=== PATIENT | female | born 1965 | race Two or more races ===

== ENCOUNTER 2021-04-16 22:39 | Inpatient (IN) | payer MEDICAID ==
[~2021-04-16] VITALS: Ht 154.9 cm; Wt 66.8 kg
--- NOTE | 2021-04-16 22:40 | NUR ---
pt bibra c/o gen weakness, n/v/d xtoday. pt aaox4 breathing evenly and unlabored. Pt skin warm, dry, and intact. Pt attached to monitor and pox. pt given blanket and call light within reach
[2021-04-16] MEDS ORDERED: ONDANSETRON HCL/PF 4 MG/2 ML VIAL IV ONE (23:30)
[2021-04-16] MEDS ORDERED: IV NS 0.9% 1,000 ML BAG IV ONE (23:30)
[2021-04-16] MEDS ORDERED: IV NS 0.9% 500 ML BAG IV ONE (23:30)
[2021-04-16] MEDS ORDERED: ONDANSETRON HCL/PF 4 MG/2 ML VIAL ONE (23:31)
[2021-04-16 23:33] LABS: BASOPHILS % (AUTO) 0.3 % (0.0-2.0); HEMATOCRIT 46 % (33-45); HEMOGLOBIN 14.9 g/dL (11.5-14.8); LYMPHOCYTES # (AUTO) 1.5 K/uL (0.8-4.8); LYMPHOCYTES % (AUTO) 11.4 % (20.0-44.0); MEAN CORPUSCULAR HGB CONC 33 g/dl (31.0-36.0); MEAN CORPUSCULAR VOLUME 85 fL (82-100); MONOCYTES # (AUTO) 0.4 K/uL (0.1-1.30); MONOCYTES % (AUTO) 2.8 % (2.0-12.0); NEUTROPHILS # (AUTO) 11.5 K/uL (1.8-8.9); NEUTROPHILS % (AUTO) 85.5 % (43.0-81.0); PLATELET COUNT (AUTO) 169 K/uL (150-450); RED BLOOD CELL COUNT(AUTO) 5.39 MIL/uL (4.0-5.2); WHITE BLOOD COUNT (AUTO) 13.4 K/uL (4.3-11.0)
[2021-04-17] VITALS (36 sets, daily range): BP systolic 90–210; BP diastolic 20–126
[2021-04-17 00:01] LABS: ALANINE AMINOTRANSFERASE 20 U/L (12-78); ALBUMIN 4.1 g/dL (3.4-5.0); ALKALINE PHOSPHATASE 180 U/L (46-116); ASPARTATE AMINOTRANSFERASE 16 U/L (15-37); BILIRUBIN,DIRECT 0.2 mg/dL (0.0-0.2); BILIRUBIN,TOTAL 0.9 mg/dL (0.2-1.0); CALCIUM, SERUM 9.5 mg/dL (8.5-10.1); CARBON DIOXIDE 22 mmol/L (21-32); CHLORIDE 98 mmol/L (98-107); CREATININE 0.7 mg/dL (0.6-1.3); POTASSIUM 3.4 mmol/L (3.5-5.1); SODIUM SERUM 136 mmol/L (136-145); TOTAL PROTEIN, SERUM 8.4 g/dL (6.4-8.2); UREA NITROGEN, BLOOD 12 mg/dL (7-18)
--- NOTE | 2021-04-17 00:02 | NUR ---
blood glucose 359, per lab
[2021-04-17 00:03] LABS: GLUCOSE 359 mg/dL (74-106)
[2021-04-17] MEDS ORDERED: INSULIN REGULAR, HUMAN 100 UNIT/ML 10 ML VIAL IV ONE (01:00)
--- NOTE | 2021-04-17 01:00 | NUR ---
urine sent to lab
[2021-04-17] MEDS ORDERED: INSULIN REGULAR, HUMAN 100 UNIT/ML 10 ML VIAL ONE (01:07)
[2021-04-17] MEDS ORDERED: ONDANSETRON HCL/PF 4 MG/2 ML VIAL ONE (01:07)
[2021-04-17] MEDS ORDERED: ONDANSETRON HCL/PF 4 MG/2 ML VIAL IV ONE (01:30)
--- NOTE | 2021-04-17 02:03 | NUR ---
elio, son [phone]
--- NOTE | 2021-04-17 02:05 | NUR ---
called lab to f/u 10 more minutes for urine
--- NOTE | 2021-04-17 02:17 | NUR ---
bg 299
[2021-04-17 02:50] LABS: ABG BASE EXCESS -4.5 mmol/L; ABG OXYGEN SATURATION 96.7 % (92.0-98.5); ABG PCO2 23.7 mmHg (35.0-45.0); ABG PH 7.471 (7.350-7.450); ABG PO2 84.7 mmHg (75.0-100.0); AaDO2 36.7 mmHg; COHb 0.6 % (0.5-1.5); MetHb 0.5 % (0.0-1.5); O2Hb 95.6 % (94.0-97.0); SITE, ABG Right Brachial; VENT MODE, BG ROOM AIR
[2021-04-17 03:00] LABS: BILIRUBIN,URINE NEGATIVE (NEGATIVE); COLOR,URINE YELLOW (YELLOW); LEUKOCYTE ESTERASE ,URINE NEGATIVE (NEGATIVE); NITRITE, URINE NEGATIVE (NEGATIVE); PROTEIN,URINE NEGATIVE (NEGATIVE); UGLUCOSE >=1000 mg/dL (NEGATIVE); UROBILINOGEN,URINE 0.2 EU/dL (0.2)
--- NOTE | 2021-04-17 03:04 | NUR ---
CALLED NURSING SUP FOR TELE BED
[2021-04-17 03:19] LABS: BACTERIA,URINE None seen /HPF (None Seen); MUCUS,URINE Rare /LPF (None Seen); RBC,URINE 0-2 /HPF (0-2); SQUAMOUS EPITHELIAL CELL,UR Rare /HPF (None Seen); WBC,URINE 0-2 /HPF (0-3)
[2021-04-17] MEDS ORDERED: hydrALAZINE HCL IV 20 MG VIAL ONE ×2 (03:26→05:01)
[2021-04-17] MEDS ORDERED: METOCLOPRAMIDE HCL 10 MG/2 ML VIAL ONE (03:26)
--- NOTE | 2021-04-17 03:29 | NUR ---
Neon Pumper Gema Angel verbal order 10g hydralazine and 10 mg Reglan
--- NOTE | 2021-04-17 04:18 | NUR ---
attempted to give report. Placed on hold. will call again
[2021-04-17] MEDS ORDERED: DEXTROSE 50%-WATER 50 ML DISP.SYRIN IV PRN ×2 (04:30→22:00)
[2021-04-17] MEDS ORDERED: *INSULIN ASPART NOVOLOG 100 UNIT/ML CARTRIDGE SQ PRN (04:30)
[2021-04-17] MEDS ORDERED: ACETAMINOPHEN 325 MG TABLET PO PRN (04:30)
[2021-04-17] MEDS ORDERED: INSULIN ASPART/LISPRO 100 UNIT/ML CARTRIDGE SQ PRN (04:30)
[2021-04-17] MEDS ORDERED: ZOLPIDEM TARTRATE 5 MG TABLET PO PRN (04:30)
[2021-04-17] MEDS ORDERED: Z GUARD REMEDY 2 OZ OINT TP PRN (04:30)
[2021-04-17] MEDS ORDERED: IV NS 0.9% 1,000 ML IV PRN ×2 (04:30→05:16)
[2021-04-17] MEDS ORDERED: BLOOD SUGAR DIAGNOSTIC 1 EACH STRIP IN SCH (04:30)
[2021-04-17] MEDS ORDERED: MAGNESIUM HYDROXIDE 30 ML UDC PO PRN (04:30)
[2021-04-17] MEDS ORDERED: MAG HYDROX/AL HYDROX/SIMETH 30 ML UDC PO PRN (04:30)
--- NOTE | 2021-04-17 04:42 | NUR ---
gave report to SONAM Coronado for kyle
[2021-04-17 04:52] LABS: CALCIUM, SERUM 9.2 mg/dL (8.5-10.1); CREATININE 0.7 mg/dL (0.6-1.3); POTASSIUM 3.2 mmol/L (3.5-5.1)
[2021-04-17] MEDS ORDERED: METOCLOPRAMIDE HCL 10 MG/2 ML VIAL IV PRN (05:00)
[2021-04-17] MEDS ORDERED: hydrALAZINE HCL IV 20 MG VIAL IV PRN ×2 (05:00→05:30)
--- NOTE | 2021-04-17 05:00 | NUR ---
Drop Wire Stringer priyanka Angel verbal order 10mg hydralzaine iv
[2021-04-17] MEDS: BLOOD SUGAR DIAGNOSTIC 1 EACH STRIP IN SCH ×16 (05:26→23:52)
[2021-04-17] MEDS ORDERED: SODIUM BICARBONATE SYR 50 MEQ/50 ML DISP.SYRIN IV ONE (05:30)
[2021-04-17] MEDS ORDERED: INSULIN REGULAR, HUMAN 100 UNIT in IV NS 0.9% 99 ML IV PRN (05:30)
--- NOTE | 2021-04-17 05:30 | NUR ---
PER NEVIN, HAND BOX FOLDER, PT WILL NEED ICU BED, PT WILL BE STARTED ON INSULIN DRIP. HOUSE SUP MADE AWARE. NO NURSE/BED AVAILABLE AT THIS TIME
--- NOTE | 2021-04-17 05:45 | NUR ---
CALLED NURSING SUP FOR MIDLINE
--- NOTE | 2021-04-17 05:50 | NUR ---
Per Gema Melissa, insulin drip started with algorithm 2. insulin 100 unit in 0.9% NS 100ml rate 5units/hr
--- NOTE | 2021-04-17 06:45 | NUR ---
rt at bedside for ABG
--- NOTE | 2021-04-17 06:55 | NUR ---
bg 331
--- NOTE | 2021-04-17 07:05 | NUR ---
gave report to SONAM Desir for kyle
[2021-04-17 07:15] LABS: ABG BASE EXCESS -4.2 mmol/L; ABG PCO2 17.5 mmHg (35.0-45.0); ABG PH 7.552 (7.350-7.450); ABG PO2 131.1 mmHg (75.0-100.0); COHb 1.7 % (0.5-1.5); MetHb 0.3 % (0.0-1.5); SITE, ABG Left Femoral; VENT MODE, BG room air
--- NOTE | 2021-04-17 07:50 | NUR ---
GOT ICU BED 256
[2021-04-17] MEDS ORDERED: INSU100I19 SQ (07:59)
[2021-04-17] MEDS ORDERED: INSU100V SQ (07:59)
[2021-04-17] MEDS ORDERED: LISI10TA29 PO (07:59)
[2021-04-17] MEDS ORDERED: GABA600T12 PO (07:59)
[2021-04-17] MEDS ORDERED: AMIT25TA9 PO (07:59)
--- NOTE | 2021-04-17 08:03 | NUR ---
report given to nurse Restrepo from ICU
--- NOTE | 2021-04-17 08:37 | NUR ---
pt transfered to ICU WITH ACLS PROTOCOLS IN PLACE
--- NOTE | 2021-04-17 09:00 | NUR ---
CORRECTIONAL SUPPLY SUPERVISOR NOTE RECEIVED PATIENT FROM ER.WITH DIAGNOSIS OF DKA AND HYPERTENSIVE URGENCY.PATIENTAXOX2 WITH ANXIETY.ELEVATED BP .RESTLESS.SIEBEL CONSULTANT DEWAYNE MADE AWARE.PATIENT HAS ONLY 1 IV LINE.UNABLE TO CONNECT ANY OTHER FLUID.HARD STICK.GUN SEALING MACHINE OPERATOR MADE AWARE FOR MIDLINE PLACEMENT.INSERTED PA CATH,PATIENT FEEL DIZZY WHILE GETTING UP WITH ANXIETY.HYPERVENTILATED.REFUSED TO USE BEDPAN.AGREED WITH PA CATH PLACEMENT.BED IS LOW AND IN ARMAND DPOSITION.CALL LIGHT IN REACH.BED ALARM TOSHIA SRX3.WILL CONTINUE TO MONITOR.
[2021-04-17] MEDS: ONDANSETRON HCL/PF 4 MG/2 ML VIAL IVP PRN (09:02)
[2021-04-17] MEDS: POTASSIUM CL. PREMIX PERIPHER. 50 ML IV SCH ×10 (09:07→23:44)
[2021-04-17] MEDS: hydrALAZINE HCL IV 20 MG VIAL IV PRN ×2 (09:38→23:19)
[2021-04-17] MEDS: PANTOPRAZOLE 40 MG VIAL IV SCH ×2 (09:56→22:29)
[2021-04-17 10:05] LABS: BASOPHILS # (AUTO) 0.1 K/uL (0.0-0.2); BASOPHILS % (AUTO) 0.6 % (0.0-2.0); HEMATOCRIT 44 % (33-45); HEMOGLOBIN 14.9 g/dL (11.5-14.8); LYMPHOCYTES # (AUTO) 1.1 K/uL (0.8-4.8); LYMPHOCYTES % (AUTO) 5.8 % (20.0-44.0); MEAN CORPUSCULAR HGB CONC 34 g/dl (31.0-36.0); MEAN CORPUSCULAR VOLUME 82 fL (82-100); MONOCYTES # (AUTO) 1.4 K/uL (0.1-1.30); MONOCYTES % (AUTO) 7.7 % (2.0-12.0); NEUTROPHILS # (AUTO) 16.2 K/uL (1.8-8.9); NEUTROPHILS % (AUTO) 85.9 % (43.0-81.0); PLATELET COUNT (AUTO) 473 K/uL (150-450); RED BLOOD CELL COUNT(AUTO) 5.44 MIL/uL (4.0-5.2); WHITE BLOOD COUNT (AUTO) 18.9 K/uL (4.3-11.0)
--- NOTE | 2021-04-17 10:10 | NUR ---
VOLUNTEER MANAGER NOTE SEEN BY FARA BUCHANAN.UPDATED ABOUT PATIENT CONDITION WITH ABNORMAL LABS WITH ABG,MADE AWARE THAT UNABLE TO GIVE IV FLUID BECAUSE OF IV LINE ONLY ONE AWAITING MIDLINE INSERTION .PATIENT C/O PAIN WHILE GIVING FLUID.WILL CONTINUE TO MONITOR.
[2021-04-17] MEDS: MORPHINE SULFATE INJ 2 MG/ML DISP.SYRIN IV PRN ×3 (10:11→22:30)
[2021-04-17 10:27] LABS: CALCIUM, SERUM 9.7 mg/dL (8.5-10.1); CARBON DIOXIDE 20 mmol/L (21-32); CHLORIDE 98 mmol/L (98-107); CREATININE 0.8 mg/dL (0.6-1.3); GLUCOSE 309 mg/dL (74-106); SODIUM SERUM 138 mmol/L (136-145); UREA NITROGEN, BLOOD 9 mg/dL (7-18)
[2021-04-17 10:33] LABS: LIPASE 52 U/L (73-393); MAGNESIUM 1.5 mg/dL (1.8-2.4); PHOSPHORUS 1.4 mg/dL (2.5-4.9); POTASSIUM 2.4 mmol/L (3.5-5.1)
[2021-04-17 10:35] LABS: CHOLESTEROL 235 mg/dL (<200); HDL CHOLESTEROL 58 mg/dL (40-60); LDL 154 mg/dL (0-99); TRIGLYCERIDES 110 mg/dL (30-150)
[2021-04-17] MEDS ORDERED: MORPHINE SULFATE INJ 2 MG/ML DISP.SYRIN IV STA (10:58)
[2021-04-17] MEDS ORDERED: IV D5W 1,000 ML IV PRN (12:30)
[2021-04-17 13:00] LABS: ABG BASE EXCESS -0.9 mmol/L; ABG OXYGEN SATURATION 98.7 % (92.0-98.5); ABG PCO2 13.4 mmHg (35.0-45.0); ABG PH 7.677 (7.350-7.450); AaDO2 29.7 mmHg; COHb 0.7 % (0.5-1.5); MetHb 0.2 % (0.0-1.5); O2Hb 97.8 % (94.0-97.0); SITE, ABG Right Radial; VENT MODE, BG ROOM AIR
[2021-04-17] MEDS: Potassium Chloride 40 MEQ in IV NS 0.9% 1,000 ML IV SCH ×2 (13:32→19:48)
[2021-04-17] MEDS ORDERED: LORAZEPAM INJ 2 MG/ML VIAL IV ONE (15:00)
[2021-04-17 15:03] LABS: CALCIUM, SERUM 9.5 mg/dL (8.5-10.1); CREATININE 0.7 mg/dL (0.6-1.3)
[2021-04-17 15:05] LABS: POTASSIUM 2.7 mmol/L (3.5-5.1)
[2021-04-17] MEDS ORDERED: Sodium Phosphate 15 MMOL in IV NS 0.9% 245 ML IV SCH (15:30)
--- NOTE | 2021-04-17 19:30 | NUR ---
SYSTEMS INTEGRATION MANAGER OPENING NOTES: RECEIVED PT A/OX4 IN BED RESTING PATIENT IN NO S/SX OF ACUTE DISTRESS AT THIS TIME. NO SOB NOTED. PATIENT'S BREATHING IS EVEN AND UNLABORED. PATIENT IS ON ROOM AIR; TOLERATING WELL WITH 02 SAT OF 100% AT THE TIME OF RECEIVED. PATIENT ON TELE MONITORING READING SINUS RHYTHM HR IS @90s AT THE TIME OF RECEIVED. PATIENT ON NPO. NOTED IV SITE ON L FA #20 , L HAND #20 AND R UAM MDILINE #18 ; ALL PATENT, INTACT AND FLUSHING WELL; NO S/S OF INFECTION OR INFILTRATION. WITH IV FLUID RUNNING ORDERED. PT HAS A RUNNING INSULIN DRIP; RECIEVED @2UNITS/HR PER PROTOCOL. PA CATH IN PLACE, MODERATE URINE OUTPUT NOTED. SAFETY MEASURES HAVE BEEN PROVIDED AND IMPLEMENTED. PATIENT BED ALARM IS ON. HEAD OF BED ELEVATED. BED IS LOCKED, IN LOWEST POSITION AND SIDE RAILS UP. CALL LIGHT WITHIN REACH OF THE PATIENT. APPLICABLE ISOLATION PRECAUTIONS IN PLACE. WILL CONTINUE TO MONITOR AND REASSESS FOR ANY CHANGES AND WILL CARRY OUT ANY ONGOING AND ACTIVE MD ORDER.
--- NOTE | 2021-04-17 19:33 | NUR ---
BROKER ASSOCIATE CLOSING NOTE PATIENT IN BED.AXOX4.NO SOB NO DISTRESS NOTED.ON ROOM AIR IN STABLE CONDITION WITH INSULIN DRIP.FOLLOWING ORDER FOR INSULIN ADMINISTRATION FAXED TO THE PHARMACY AND HANDED OVER TO PM NURSE,.FARA BUCHANAN SEEN THE PATIENT NOW.OK TO DO BMP NOW.SHE WANTED TO DO BMP @ 1999.ALL LABS AND CURRENT STATUS OF THE PATIENT NOTIFIED.POTASSIUM AND IVF GIVEN LATE BECAUSE OF LATE MIDLINE PLACEMENT. AND FARA BUCHANAN MADE AWARE.FAMILY AT BEDSIDE.BED IS LOCKED AND IN LOW POSITION .CALL LIGHT IN REACH .BED ALARM IS ON SRX3.ENDORSED TO PM NURSE FOR EMI.
[2021-04-17 19:47] LABS: CALCIUM, SERUM 8.9 mg/dL (8.5-10.1); CREATININE 0.6 mg/dL (0.6-1.3); POTASSIUM 3.6 mmol/L (3.5-5.1)
--- NOTE | 2021-04-17 19:47 | NUR ---
RN NOTES ADMINISTERED POTASSIUM CHLORIDE 10MEQ/50ML SUPPOSEDLY SCHEDULED FOR 1330, ON SITE NURSE MADE AWARE REGARDING DELAYED ADMINISTRATION FROM AM SHIFT. 3 MORE BAGS AVAILABLE TO ADMINISTER. WILL CONTINUE TO CARRY OUT ORDERS SCHEDULED THROUGHOUT THE SHIFT.
--- NOTE | 2021-04-17 21:20 | NUR ---
RN NOTES ANION GAP RESULT CAME OUT 14, BLOOD SUGAR FOR THE LAST 4 CONSECUTIVE CHECKS ARE ALL WITHIN NORMAL RANGE. INFORMED JAMAR GARCIA FOR FURTHER ORDERS. CESAR MASTERS MADE AWARE. AWAITING FOR JAMAR GARCIA'S ORDERS. Addendum: 04/17/21 at 2229 by BRANDON GONZALEZ RN SECURED ORDER FROM JAMAR GARCIA; CORRY INSULIN DRIP AND START ACCU CHECK SLIDING SCALE AGGRESSIVE ACHS Q2 X4;
--- NOTE | 2021-04-17 21:30 | NUR ---
RN NOTES PT PULLED OUT IV ACCESS AT R UA MIDLINE; DEFLASH AND WASH OPERATOR MADE AWARE. SECURED ORDER FROM JAMAR GARCIA FOR SALVADOR CLAY FOR PT.
[2021-04-17] MEDS ORDERED: *INSULIN REGULAR(HUMULIN R)HUM 100 UNIT/ML VIAL SQ PRN (22:00)
[2021-04-17] MEDS ORDERED: INSULIN REGULAR, HUMAN 100 UNIT/ML 3 ML VIAL ONE (23:19)
--- NOTE | 2021-04-17 23:19 | NUR ---
RN NOTES APRESOLINE IV GIVEN PRN ; PT'S BP: 167-66 HR: 108. SEWER SEPARATION DESIGNER MADE AWARE. WILL CONTINUE TO ASSESS AND MONITOR THROUGHOUT THE SHIFT.
--- NOTE | 2021-04-17 23:25 | NUR ---
RN NOTES PICC LINE NURSE (CHEYANNE) FACILITATED INSERTION OF MIDLINE @ L UA G#18, SECURED , INTACT AND FLUSHING WELL. AQUATIC PHYSIOTHERAPIST WELL AWARE.
[2021-04-18] VITALS (31 sets, daily range): BP systolic 101–207; BP diastolic 43–118
--- NOTE | 2021-04-18 01:30 | NUR ---
SONAM NOTES SECURED ORDER FROM JAMAR GARCIA; NSG SWALLOW EVAL IF OK MAY START DIABETIC DIET. RICHARD MASTERS MADE AWARE. Addendum: 04/18/21 at 0136 by BRANDON GONZALEZ RN JAMAR GARCIA THAT NSG SWALLOW SCREEN DONE AND PT TOLERATED EVAL. JAMAR GARCIA ORDER START DIABETIC DIET. RICHARD MASTERS MADE AWARE.
[2021-04-18] MEDS: BLOOD SUGAR DIAGNOSTIC 1 EACH STRIP IN SCH ×7 (01:31→21:48)
[2021-04-18] MEDS: INSULIN REGULAR, HUMAN 100 UNIT/ML 3 ML VIAL SQ PRN ×5 (01:43→17:11)
[2021-04-18] MEDS: ONDANSETRON HCL/PF 4 MG/2 ML VIAL IVP PRN (01:50)
--- NOTE | 2021-04-18 02:01 | NUR ---
RN NOTES NOTED PT'S BP IS >160 SYSTOLIC, PRN MEDICATION GIVEN INDICATED (Q6H PRN). ALSO NOTED PT VERY ANXIOUS AND RESTLESS. SUPERVISORY CIVIL ENGINEER WELL AWARE. COMMUNICATED WITH JAMAR AND ADVISE OF CONCERN. JAMAR GARCIA ORDERED ATIVAN 1MG Q6H PRN IV. SUPERVISORY CIVIL ENGINEER MADE AWARE. WILL CARRY OUT ORDER REQUESTED. WILL CONTINUE TO MONITOR AND ASSESS THROUGHOUT THE SHIFT.
[2021-04-18] MEDS: Potassium Chloride 40 MEQ in IV NS 0.9% 1,000 ML IV SCH (02:17)
[2021-04-18] MEDS: LORAZEPAM INJ 2 MG/ML VIAL IV PRN ×2 (02:27→10:03)
--- NOTE | 2021-04-18 03:05 | NUR ---
RN NOTES NOTED PT'S BP IS STILL >160 SYSTOLIC; PRN MED GIVEN @2300 (APRESOLINE IV Q6H PRN) AND ATIVAN 1MG @0227 Q6H PRN FOR ANXIETY; PT OBSERVED TO BE RESTLESS AND ANXIOUS. MANUAL BP TAKEN; STILL >160 SYSTOLIC. DRIVER RECRUITER MADE AWARE. JAMAR GARCIA MADE AWARE. AWAITING FOR MD ORDERS. WILL CARRY OUT MD ORDER ONCE RECEIVED. Addendum: 04/18/21 at 0332 by BRANDON GONZALEZ RN JAMAR GARCIA ORDERED ONE TIME HYDRALAZINE 10MG IV. RICHARD MASTERS MADE AWARE. WILL CARRY OUT ORDER REQUESTED.
[2021-04-18] MEDS ORDERED: hydrALAZINE HCL IV 20 MG VIAL IV ONE (03:30)
--- NOTE | 2021-04-18 04:00 | NUR ---
RN NOTES PT PUT ON 2L OF O2 VIA NC, MACHINE OPERATOR HOP WORKER MADE AWARE.
[2021-04-18 05:04] LABS: BASOPHILS % (AUTO) 0.1 % (0.0-2.0); HEMATOCRIT 39 % (33-45); LYMPHOCYTES # (AUTO) 1.6 K/uL (0.8-4.8); LYMPHOCYTES % (AUTO) 7.5 % (20.0-44.0); MEAN CORPUSCULAR HGB CONC 33 g/dl (31.0-36.0); MEAN CORPUSCULAR VOLUME 83 fL (82-100); MONOCYTES # (AUTO) 1.2 K/uL (0.1-1.30); MONOCYTES % (AUTO) 5.9 % (2.0-12.0); NEUTROPHILS # (AUTO) 18.1 K/uL (1.8-8.9); NEUTROPHILS % (AUTO) 86.5 % (43.0-81.0); PLATELET COUNT (AUTO) 371 K/uL (150-450)
[2021-04-18 05:54] LABS: MAGNESIUM 1.7 mg/dL (1.8-2.4); PHOSPHORUS 2.2 mg/dL (2.5-4.9)
[2021-04-18] MEDS ORDERED: DEXTROSE 50%-WATER 50 ML DISP.SYRIN IV PRN (06:00)
--- NOTE | 2021-04-18 06:56 | NUR ---
RN CLOSING NOTE: PATIENT REMAINS IN ROOM IN NO SIGNS OF RESPIRATORY DISTRESS, PATIENT STILL ON 2L OF 02 VIA NC;TOLERATING WELL SATURATING @ >95% SP02. SAFETY MEASURES IMPLEMENTED, BED IN LOWEST POSITION, LOCKED, SIDE RAILS UP, CALL LIGHT WITHIN REACH. ALL NEEDS AND ORDERS ADDRESSED DURING THE SHIFT. IV ACCESS MAINTAINED INTACT, SECURED AND FLUSHING WELL. ALL DUE MEDS GIVEN ORDERED & SCHEDULED ; PATIENT TOLERATED WELL. PATIENT KEPT CLEAN AND COMFORTABLE WITHIN THE SHIFT. PATIENT ENDORSED TO INCOMING SHIFT RN WITH STABLE VITAL SIGN AND FOR CONTINUITY OF CARE.
--- NOTE | 2021-04-18 07:10 | NUR ---
RN NOTES RECEIVED PT ON BED, A/Ox3-4, ON 2L O2 N/C , O2 SAT WNL, ON TELE ST HR IN 130'S , L UPPER ARM MIDLINE SITE CLEAN, DRY AND INTACT, SR UP x3, CALL LIGHT WITHIN EASY REACH, BED LOCKED AND IN LOWEST POSITION, CONTINUE TO MONITOR .
[2021-04-18] MEDS: GABAPENTIN 300 MG CAPSULE PO SCH ×3 (08:10→17:04)
[2021-04-18] MEDS: LISINOPRIL (20MG) 20 MG TABLET PO SCH (08:12)
[2021-04-18] MEDS: PANTOPRAZOLE 40 MG VIAL IV SCH ×2 (09:47→21:50)
--- NOTE | 2021-04-18 10:00 | NUR ---
RN NOTES BILLING SPEC NOITIFED REGRADING HR IN 120'S,130'S. CONTINUE TO MONITOR
[2021-04-18] MEDS: Magnesium 1GM/D5W 100ML PREMIX 100 ML IV SCH ×2 (10:42→11:47)
[2021-04-18] MEDS ORDERED: Sodium Phosphate 15 MMOL in IV NS 0.9% 245 ML IV SCH (11:00)
[2021-04-18 11:55] LABS: CALCIUM, SERUM 8.9 mg/dL (8.5-10.1); CREATININE 0.5 mg/dL (0.6-1.3); POTASSIUM 4.1 mmol/L (3.5-5.1)
[2021-04-18] MEDS: INSULIN GLARGINE, 100 UNIT/ML CARTRIDGE SQ SCH ×2 (12:00→22:13)
--- NOTE | 2021-04-18 12:00 | NUR ---
RN NOTES PT REFUSED TO EAT LUNCH , JET WIPER NOITFED, LANTUS HELD PER JET WIPER ORDER .
[2021-04-18] MEDS: Potassium Chloride 40 MEQ in IV D5/ 0.9% NACL 1,000 ML IV PRN (15:29)
--- NOTE | 2021-04-18 17:00 | NUR ---
RN NOTES PT REFUSED TO EAT DINNER . CONTINUE TO MONITOR BLOOD GLUCOSE .
[2021-04-18] MEDS: AMITRIPTYLINE HCL 25 MG TABLET PO SCH (17:05)
--- NOTE | 2021-04-18 18:00 | NUR ---
RN NOTES PT TRANSFERRED TO ROOM 314-2 TELE STATUS VIA ACLS PROTOCOL IN STABLE CONDITION WITH ALL HER BELONGINGS , REPORT GIVEN TO MELE MASTERS FOR CONTINUITY OF CARE .
--- NOTE | 2021-04-18 18:08 | NUR ---
RECEIVED PATIENT FROM ICU. PATIENT STABLE, A/O X3. GETS CONFUSED. STATES SHE WANTS TO SLEEP AT THIS TIME. STABLE ON ROOM AIR - NO SOB OR DISTRESS NOTED. NO PAIN AT THIS TIME. IV ACCESS TO LEFT UPPER ARM - MIDLINE - RUNNING KCL 40MEQ @ 100ML/HR. SAFETY MEASURES IMPLEMENTED. CALL LIGHT WITHIN REACH. WILL CONTINUE TO MONITOR.
--- NOTE | 2021-04-18 18:44 | NUR ---
SWIMMING POOL MAINTENANCE CLOSING NOTE PATIENT CURRENTLY LYING IN BED ON HER STOMACH, SLEEPING. TRANSFER FROM ICU. EASY TO AROUSE. A/O X2-3. STABLE ON ROOM AIR - NO SOB OR DISTRESS NOTED. NO PAIN AT THIS TIME. EXTERNAL TELE MONITOR READS SINUS TACHY IN THE 120'S. IV ACCESS TO LEFT UPPER ARM - MIDLINE - RUNNING KCL 40MEQ @ 100ML/HR. PA CATHETER NOTED - 1200CC OUTPUT. SAFETY MEASURES IMPLEMENTED. CALL LIGHT WITHIN REACH. WILL ENDORSE TO BLENDER SNUFF NURSE FOR EMI.
--- NOTE | 2021-04-18 19:30 | NUR ---
CUSTOMER CARE MANAGER OPENING NOTE RECEIVED PT IN BED WITH EYES CLOSED IN PRONE POSITION, AROUSABLE TO STIMULATION. A/O X2-3. PT IS STABLE ON ROOM AIR. NO SOB OR S/S OF RESPIRATORY DISTRESS NOTED. PT HAS NO C/O PAIN OR DISCOMFORT AT THIS TIME. PT IS ON EXTERNAL TAPPING MACHINE OPERATOR READING SINUS TACHY 102 BPM. IV ACCESS NOTED IN LEFT UPPER ARM MIDLINE, INFUSING KCL 40MEQ @ 100ML/HR. PA CATH IN PLACE DRAINING CLEAR YELLOW URINE. SAFETY MEASURES MAINTAINED. BED IN LOWEST LOCKED POSITION, HOB ELEVATED, SIDE RAILS UP X2. CALL LIGHT AND TABLE WITHIN REACH. WILL CONTINUE WITH PLAN OF CARE.
[2021-04-18] MEDS: *INSULIN REGULAR(HUMULIN R)HUM 100 UNIT/ML VIAL SQ PRN (22:11)
[2021-04-19] VITALS (9 sets, daily range): BP systolic 140–188; BP diastolic 71–88
[2021-04-19] MEDS: hydrALAZINE HCL IV 20 MG VIAL IV PRN ×3 (01:15→23:37)
--- NOTE | 2021-04-19 01:15 | NUR ---
BP NOTED AT 185/82, HR NOTED AT 107. RECHECKED AND BP NOTED AT 181/96, HR AT 112. ADMINISTERED HYDRALAZINE 10 MG IV Q6H PRN FOR SBP>150 ORDERED. WILL CONTINUE TO MONITOR.
[2021-04-19] MEDS: Potassium Chloride 40 MEQ in IV D5/ 0.9% NACL 1,000 ML IV PRN (02:07)
--- NOTE | 2021-04-19 05:10 | NUR ---
PT REFUSED WOUND PHOTOS AND STATED THAT SHE WANTS TO SLEEP AT THIS TIME. PT EDUCATION GIVEN ON RISKS AND BENEFITS. WILL CONTINUE TO MONITOR.
[2021-04-19 06:02] LABS: BASOPHILS % (AUTO) 0.3 % (0.0-2.0); HEMATOCRIT 40 % (33-45); HEMOGLOBIN 13.2 g/dL (11.5-14.8); LYMPHOCYTES % (AUTO) 17.2 % (20.0-44.0); MEAN CORPUSCULAR HGB CONC 33 g/dl (31.0-36.0); MEAN CORPUSCULAR VOLUME 84 fL (82-100); MONOCYTES % (AUTO) 8.3 % (2.0-12.0); NEUTROPHILS # (AUTO) 8.6 K/uL (1.8-8.9); NEUTROPHILS % (AUTO) 74.2 % (43.0-81.0); PLATELET COUNT (AUTO) 342 K/uL (150-450); RED BLOOD CELL COUNT(AUTO) 4.77 MIL/uL (4.0-5.2); WHITE BLOOD COUNT (AUTO) 11.6 K/uL (4.3-11.0)
[2021-04-19 06:13] LABS: CALCIUM, SERUM 8.6 mg/dL (8.5-10.1); CREATININE 0.5 mg/dL (0.6-1.3); MAGNESIUM 2.1 mg/dL (1.8-2.4); PHOSPHORUS 2.6 mg/dL (2.5-4.9); POTASSIUM 3.6 mmol/L (3.5-5.1)
[2021-04-19] MEDS: BLOOD SUGAR DIAGNOSTIC 1 EACH STRIP IN SCH ×4 (06:30→22:07)
[2021-04-19] MEDS: INSULIN REGULAR, HUMAN 100 UNIT/ML 3 ML VIAL SQ PRN (06:32)
--- NOTE | 2021-04-19 06:35 | NUR ---
BANKING ASSISTANT CLOSING NOTE PT IS IN BED WITH EYES CLOSED, AROUSABLE TO STIMULATION. A/O X2-3. PT IS STABLE ON ROOM AIR. NO SOB OR S/S OF RESPIRATORY DISTRESS NOTED. PT HAS NO C/O PAIN OR DISCOMFORT AT THIS TIME. PT IS ON EXTERNAL LIBRARIAN HELPER READING SINUS TACHY 112 BPM. IV ACCESS IS INTACT, PATENT, AND FLUSHING WELL. PA CATH IN PLACE DRAINING CLEAR YELLOW URINE. ALL NEEDS HAVE BEEN MET. SAFETY PRECAUTIONS MAINTAINED AT ALL TIMES. BED IN LOWEST LOCKED POSITION, HOB ELEVATED, SIDE RAILS UP X2. CALL LIGHT AND TABLE WITHIN REACH. WILL ENDORSE TO ONCOMING NURSE FOR EMI.
--- NOTE | 2021-04-19 07:45 | NUR ---
INTERNATIONAL GUEST COORDINATOR OPENING NOTE PT IS IN BED WITH EYES CLOSED, AROUSABLE TO STIMULATION. A/O X2-3. PT IS STABLE ON ROOM AIR. NO SOB OR S/S OF RESPIRATORY DISTRESS NOTED. PT HAS NO C/O PAIN OR DISCOMFORT AT THIS TIME. PT IS ON EXTERNAL INSTRUCTOR APPAREL MANUFACTURE READING SINUS TACH 112 BPM. IV ACCESS IS INTACT, PATENT, AND FLUSHING WELL. PA CATH IN PLACE DRAINING CLEAR YELLOW URINE. SAFETY PRECAUTIONS MAINTAINED AT ALL TIMES. BED IN LOWEST LOCKED POSITION, HOB ELEVATED, SIDE RAILS UP X2. CALL LIGHT AND TABLE WITHIN REACH.
[2021-04-19] MEDS: GABAPENTIN 300 MG CAPSULE PO SCH ×3 (08:30→16:34)
[2021-04-19] MEDS: MORPHINE SULFATE INJ 2 MG/ML DISP.SYRIN IV PRN (08:31)
[2021-04-19] MEDS: LISINOPRIL (20MG) 20 MG TABLET PO SCH (08:31)
[2021-04-19] MEDS: INSULIN GLARGINE, 100 UNIT/ML CARTRIDGE SQ SCH ×2 (08:34→22:27)
[2021-04-19] MEDS: PANTOPRAZOLE 40 MG VIAL IV SCH ×2 (09:08→22:10)
[2021-04-19] MEDS ORDERED: IV NS 0.9% 500 ML IV PRN (10:30)
[2021-04-19] MEDS: AMITRIPTYLINE HCL 25 MG TABLET PO SCH (17:10)
--- NOTE | 2021-04-19 19:37 | NUR ---
IN BED ALERT AND ORIENTATED SPEECH CLEAR CALL LIGHT WITHIN HER REACH PA DRAINAGE CLEAR YELLO i INFUSING LEFT UPPER NS WITH 40 GISSELL KCL AT 100 ML HR ON A PUMP
[2021-04-19] MEDS: IV NS W/40MEQ KCL 1L IV SCH (22:21)
[2021-04-19] MEDS: *INSULIN REGULAR(HUMULIN R)HUM 100 UNIT/ML VIAL SQ PRN (22:29)
[2021-04-20] VITALS: BP 180/84
[2021-04-20 04:00] VITALS: BP 142/76
[2021-04-20 04:29] VITALS: BP 142/76
--- NOTE | 2021-04-20 04:31 | NUR ---
CLOSING NOTES: SLEPT OFF AND ON THRU NIGHT NIGHT COOPERATIVE AND FRIENDLE BLOOD PRESSURE AT 2400 WS 189/90 HR 105 HYDRALAZINE 10 MG IV GIVEN ORDERED FOR ELEVATED BLOOD PRESSURE AT 0400 BLOOD PRESSURE 142/76 HR 113 WEIGHT 147.4 LBS BEDSCALE
[2021-04-20] MEDS: BLOOD SUGAR DIAGNOSTIC 1 EACH STRIP IN SCH ×2 (06:16→11:18)
[2021-04-20] MEDS: INSULIN REGULAR, HUMAN 100 UNIT/ML 3 ML VIAL SQ PRN ×2 (06:20→08:21)
--- NOTE | 2021-04-20 07:09 | NUR ---
AWNING SPREADER OPENING NOTE PT IS IN BED WITH EYES CLOSED, AROUSABLE TO STIMULATION. A/O X2-3. PT IS STABLE ON ROOM AIR. NO SOB OR S/S OF RESPIRATORY DISTRESS NOTED. PT HAS NO C/O PAIN OR DISCOMFORT AT THIS TIME. PT IS ON EXTERNAL SHUTTLE ROUTE VEHICLE OPERATOR READING SINUS TACH 112 BPM. IV ACCESS IS INTACT, PATENT, AND FLUSHING WELL. PA CATH IN PLACE DRAINING CLEAR YELLOW URINE. SAFETY PRECAUTIONS MAINTAINED AT ALL TIMES. BED IN LOWEST LOCKED POSITION, HOB ELEVATED, SIDE RAILS UP X2. CALL LIGHT AND TABLE WITHIN REACH.
[2021-04-20 08:00] VITALS: BP_SYST 142; BP_SYST 149; BP_DIAS 76; BP_DIAS 86
[2021-04-20] MEDS: LISINOPRIL (20MG) 20 MG TABLET PO SCH (08:14)
[2021-04-20] MEDS: GABAPENTIN 300 MG CAPSULE PO SCH ×2 (08:15→12:09)
[2021-04-20] MEDS: INSULIN GLARGINE, 100 UNIT/ML CARTRIDGE SQ SCH (08:22)
[2021-04-20] MEDS ORDERED: PANTOPRAZOLE 40 MG TABLET.DR PO SCH (09:00)
[2021-04-20] MEDS ORDERED: LEVO500T90 PO (09:26)
[2021-04-20] MEDS ORDERED: METO25TA6 PO (09:26)
[2021-04-20] MEDS ORDERED: METOPROLOL TARTRATE 25 MG TABLET PO SCH (09:30)
[2021-04-20] MEDS: IV NS W/40MEQ KCL 1L IV SCH (10:26)
[2021-04-20 11:22] LABS: BASOPHILS % (AUTO) 0.4 % (0.0-2.0); EOSINOPHILS % (AUTO) 0.7 % (0.0-6.0); HEMATOCRIT 42 % (33-45); LYMPHOCYTES # (AUTO) 2.4 K/uL (0.8-4.8); LYMPHOCYTES % (AUTO) 25.5 % (20.0-44.0); MEAN CORPUSCULAR HGB CONC 33 g/dl (31.0-36.0); MEAN CORPUSCULAR VOLUME 83 fL (82-100); MONOCYTES # (AUTO) 0.9 K/uL (0.1-1.30); MONOCYTES % (AUTO) 9.7 % (2.0-12.0); NEUTROPHILS % (AUTO) 63.7 % (43.0-81.0); PLATELET COUNT (AUTO) 372 K/uL (150-450); RED BLOOD CELL COUNT(AUTO) 5.06 MIL/uL (4.0-5.2); WHITE BLOOD COUNT (AUTO) 9.3 K/uL (4.3-11.0)
[2021-04-20 11:50] LABS: CALCIUM, SERUM 9.3 mg/dL (8.5-10.1); CREATININE 0.5 mg/dL (0.6-1.3); MAGNESIUM 2.1 mg/dL (1.8-2.4); PHOSPHORUS 3.4 mg/dL (2.5-4.9); POTASSIUM 3.8 mmol/L (3.5-5.1)
[2021-04-20 12:00] VITALS: BP 131/73
== END 2021-04-20 15:15 | disposition home or self-care (01) | DRG 137 ==
LOC: ER 22:44 → TELE 04-17 03:31 → ICU 04-17 07:52 → TELE 04-18 18:01 → MED 04-19 11:07
PROVIDERS: ADMIT Nurse Practitioner Acute Care; ATTEND Nurse Practitioner Acute Care
PROC: 05H933Z Insertion of Infusion Device into Right Brachial Vein, Percutaneous Approach (ICD-10-PCS; principal; 2021-04-17)
PROC: 05HC33Z Insertion of Infusion Device into Left Basilic Vein, Percutaneous Approach (ICD-10-PCS; 2021-04-17)
DX: J69.0 Pneumonitis due to inhalation of food and vomit (principal); E11.10 Type 2 diabetes mellitus with ketoacidosis without coma; E87.3 Alkalosis; D68.59 Other primary thrombophilia; E66.01 Morbid (severe) obesity due to excess calories; E11.40 Type 2 diabetes mellitus with diabetic neuropathy, unspecified; E11.65 Type 2 diabetes mellitus with hyperglycemia; E87.6 Hypokalemia; E78.5 Hyperlipidemia, unspecified; I10 Essential (primary) hypertension; I16.0 Hypertensive urgency; Z20.822 Contact with and (suspected) exposure to COVID-19; F41.9 Anxiety disorder, unspecified; F29 Unspecified psychosis not due to a substance or known physiological condition; D72.829 Elevated white blood cell count, unspecified; N39.0 Urinary tract infection, site not specified; B96.89 Other specified bacterial agents as the cause of diseases classified elsewhere; H70.13 Chronic mastoiditis, bilateral
CPT/HCPCS: 36415; 36600; 70450-TC; 71045-TC; 76700-TC; 80048-TC; 80061-TC; 80076-TC; 81001; 82010-TC; 82803-TC; 82962-TC; 83605-TC; 83690-TC; 83735-TC; 84100-TC; 84484-TC; 85025-TC; 85730-TC; 87081-TC; A9563; C9113; C9803; G0378; J0360; J1815; J2060; J2270; J2405; J2765; J3475; J3480; J3490; J7030; J7040; J7042; J7050; J7070

== ENCOUNTER 2022-11-01 10:04 | Emergency (ER) | payer MEDICAID, OTHER ==
[~2022-11-01] VITALS: Ht 154.9 cm; Wt 86.2 kg
[~2022-11-01 10:04] MED LIST: AMIT25TA9 PO; GABA600T12 PO; INSU100I19 SQ; INSU100V SQ; LEVO500T90 PO; LISI10TA29 PO; METO25TA6 PO
--- NOTE | 2022-11-01 10:55 | NUR ---
COVID TESTING COMPLETED AT THIS TIME AND READY FOR PICKUP
[2022-11-01] MEDS ORDERED: IV NS 0.9% 1,000 ML BAG IV ONE (11:00)
[2022-11-01] MEDS ORDERED: ONDANSETRON HCL/PF 4 MG/2 ML VIAL IVP ONE (11:00)
[2022-11-01] MEDS ORDERED: ONDANSETRON HCL/PF 4 MG/2 ML VIAL ONE (11:05)
--- NOTE | 2022-11-01 11:23 | NUR ---
BLOOD DRAWN AND SENT TO LAB
--- NOTE | 2022-11-01 11:24 | NUR ---
SWAB FOR RAPID INFLUENZA SENT TO LAB
[2022-11-01 11:26] LABS: BASOPHILS % (AUTO) 0.6 % (0.0-2.0); EOSINOPHILS % (AUTO) 0.8 % (0.0-6.0); HEMATOCRIT 40 % (33-45); LYMPHOCYTES # (AUTO) 2.2 K/uL (0.8-4.8); LYMPHOCYTES % (AUTO) 27.7 % (20.0-44.0); MEAN CORPUSCULAR HGB CONC 33 g/dl (31.0-36.0); MEAN CORPUSCULAR VOLUME 86 fL (82-100); MONOCYTES # (AUTO) 0.6 K/uL (0.1-1.30); MONOCYTES % (AUTO) 8.2 % (2.0-12.0); NEUTROPHILS # (AUTO) 4.9 K/uL (1.8-8.9); NEUTROPHILS % (AUTO) 62.7 % (43.0-81.0); PLATELET COUNT (AUTO) 258 K/uL (150-450); RED BLOOD CELL COUNT(AUTO) 4.63 MIL/uL (4.0-5.2); WHITE BLOOD COUNT (AUTO) 7.8 K/uL (4.3-11.0)
[2022-11-01 11:54] LABS: ALBUMIN 3.3 g/dL (3.4-5.0); BILIRUBIN,DIRECT 0.1 mg/dL (0.0-0.2); BILIRUBIN,TOTAL 0.3 mg/dL (0.2-1.0); CALCIUM, SERUM 8.6 mg/dL (8.5-10.1); CREATININE 0.9 mg/dL (0.6-1.3); POTASSIUM 4.2 mmol/L (3.5-5.1); TOTAL PROTEIN, SERUM 6.5 g/dL (6.4-8.2)
[2022-11-01] MEDS ORDERED: INSULIN REGULAR, HUMAN 100 UNIT/ML 10 ML VIAL SQ ONE ×2 (12:00→14:00)
[2022-11-01] MEDS ORDERED: INSULIN REGULAR, HUMAN 100 UNIT/ML 10 ML VIAL ONE (12:06)
--- NOTE | 2022-11-01 13:19 | NUR ---
URINE SAMPLE SENT TO LAB
[2022-11-01 14:14] LABS: BILIRUBIN,URINE NEGATIVE (NEGATIVE); COLOR,URINE YELLOW (YELLOW); LEUKOCYTE ESTERASE ,URINE TRACE (NEGATIVE); NITRITE, URINE NEGATIVE (NEGATIVE); PROTEIN,URINE NEGATIVE (NEGATIVE); UGLUCOSE 3+ mg/dL (NEGATIVE); UROBILINOGEN,URINE 0.2 EU/dL (0.2)
[2022-11-01 14:27] LABS: BACTERIA,URINE None seen /HPF (None Seen); SQUAMOUS EPITHELIAL CELL,UR Few /HPF (None Seen); WBC,URINE 0-2 /HPF (0-3)
--- NOTE | 2022-11-01 14:42 | NUR ---
IV removed. Catheter intact and site benign. Pressure and 4x4 applied to site. No bleeding noted.Patient discharged to home in stable condition. Written and verbal after care instructions given. Patient verbalizes understanding of instruction.
[2022-11-01 15:20] VITALS: BP 145/73
== END 2022-11-01 14:42 | disposition home or self-care (01) ==
LOC: ER 10:22
DX: E11.65 Type 2 diabetes mellitus with hyperglycemia (principal); E11.40 Type 2 diabetes mellitus with diabetic neuropathy, unspecified; Z79.4 Long term (current) use of insulin; I10 Essential (primary) hypertension; Z79.899 Other long term (current) drug therapy; E86.0 Dehydration; Z20.822 Contact with and (suspected) exposure to COVID-19
CPT/HCPCS: 99284; 96374; 96361; 87426; 87804 ×2; 85025; 80048; 82010; 83605; 83690; 80076; 81001; 36415; 82962 ×2; 96372 ×2; J1815; J2405; C9803